=== PATIENT | male | born 1975 | race Caucasian/White ===

== ENCOUNTER 2018-09-07 08:59 | Outpatient (CLI) | payer BC ==
--- NOTE | 2018-09-07 10:58 | ULT ---
SCROTAL SONOGRAM WITH DUPELX EVALUATION: HISTORY: Scrotal mass. FINDINGS: Right testicle is 4.7 cm and left is 4.4 cm. Each has a normal sonographic appearance with good colo r and spectral Doppler flow. Very small cysts associated with each epididymis. In the left side of the scrotum, dilated venous structures become more engorged upon Valsalva maneuve r. IMPRESSION: 1. Varicocele left scrotum. 2. No evidence of testicular mass. POS: [facility]
--- NOTE | 2018-09-07 11:34 | CT ---
CT ABDOMEN AND PELVIS WITH AND WITHOUT CONTRAST: Multiple axial tomograms obtained through the abdomen and pelvis pre- and post-IV contrast enhancemen t. Postcontrast images were obtained in the portal venous phase and delayed venous phase. HISTORY: Microhematuria. FINDINGS: Review of the urinary tract on the noncontrast study reveals no evidence of urinary tract calculus. There is no evidence of hydronephrosis. Ureters are normal caliber. On the post contrast exam, both kidneys show equal function and enhancement. No evidence of renal ma ss or cyst. The bladder is mildly distended and appears unremarkable. On the delayed sequence, ther e is contrast secretion in the collecting structures. Collecting structures appear unremarkable. Ur eters and bladder appear unremarkable. Lung bases are clear. Liver, spleen, and pancreas are unremarkable. Adrenal glands appear normal. Bowel loops unremarkabl e. Aorta normal caliber. No adenopathy apparent. Osseous structures unremarkable. IMPRESSION: Unremarkable CT abdomen and pelvis. POS: [facility]
[2018-09-07] MEDS ORDERED: Iopamidol 370 76% 100 ML VIAL ONE (15:57)
== END 2018-09-07 09:00 | disposition home or self-care (01) ==
LOC: SCSULT 08:59
PROVIDERS: ATTEND Urology
DX: R31.29 Other microscopic hematuria (principal); N50.3 Cyst of epididymis; I86.1 Scrotal varices
CPT/HCPCS: 74178; 76870; 93976

== ENCOUNTER 2023-11-25 10:02 | Outpatient (CLI) | payer OTHER | END 2023-11-25 10:03 | disposition home or self-care (01) | LOC: SCSRAD 10:02 | PROVIDERS: ATTEND Family Medicine | DX: M54.6 Pain in thoracic spine (principal) | CPT/HCPCS: 72072 ==

== ENCOUNTER 2024-01-24 13:13 | Outpatient (CLI) | payer OTHER | END 2024-01-24 13:14 | disposition home or self-care (01) | LOC: SCSMRI 13:13 | PROVIDERS: ATTEND Family Medicine | DX: M50.10 Cervical disc disorder with radiculopathy, unspecified cervical region (principal); M54.6 Pain in thoracic spine; G95.89 Other specified diseases of spinal cord | CPT/HCPCS: 72141; 72146 ==